=== PATIENT | female | born 1945 | race Caucasian/White ===

== ENCOUNTER → 2017-08-17 | Outpatient (CLI) | payer OTHER | LOC: FIMAGING 09:32 | DX: Z12.31 Encounter for screening mammogram for malignant neoplasm of breast (principal) | CPT/HCPCS: G0202 ==

== ENCOUNTER → 2018-05-09 | Outpatient (CLI) | payer OTHER | LOC: BRMIMAGING 09:51 | PROVIDERS: ATTEND Family Medicine | DX: N64.4 Mastodynia (principal); R10.9 Unspecified abdominal pain | CPT/HCPCS: 76641-PO; 76700-PO ==

== ENCOUNTER → 2019-01-16 | Outpatient (CLI) | payer OTHER | LOC: BRMIMAGING 10:16 | PROVIDERS: ATTEND Family Medicine | DX: M81.0 Age-related osteoporosis without current pathological fracture (principal) ==